=== PATIENT | female | born 2000 | race African-American/Black ===

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

== ENCOUNTER 2020-12-08 21:51 | Emergency (ER) | payer BC ==
[2020-12-09 06:00] LABS: SARS-CoV-2 PCR NAA for Saliva Not Detected (NotDetected)
== END 2020-12-08 22:40 | disposition home or self-care (01) ==
LOC: ERS 21:51
DX: R11.2 Nausea with vomiting, unspecified (principal); R19.7 Diarrhea, unspecified; R43.9 Unspecified disturbances of smell and taste; R10.30 Lower abdominal pain, unspecified; Z20.822 Contact with and (suspected) exposure to COVID-19
CPT/HCPCS: 87635; 99284; U0003; U0005

== ENCOUNTER 2021-08-17 06:51 | Outpatient (CLI) | payer OTHER | END 2021-08-17 06:52 | disposition home or self-care (01) | LOC: BICULT 06:51 | PROVIDERS: ATTEND Physician Assistant Medical | DX: R10.33 Periumbilical pain (principal) | CPT/HCPCS: 76700 ==